=== PATIENT | female | born 2000 | race Caucasian/White ===

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

== ENCOUNTER → 2023-09-27 16:03 | Outpatient (BNVA) | payer OTHER, SELFPAY | PROVIDERS: PCP Electrodiagnostic Medicine; Visit Provider Nurse Practitioner Women's Health | DX: Z12.4 Encounter for screening for malignant neoplasm of cervix (principal) | CPT/HCPCS: 88175 ==

== ENCOUNTER 2023-12-13 10:34 | Outpatient (CLI) | payer OTHER, SELFPAY ==
--- NOTE | 2023-12-13 10:42 | XR_ITS ---
WS: [id number] KUB, AP view, 12/13/2023 Clinical Data: HISTORY OF NEPHROLITHIASIS Comparison: KUB, 02/28/2021 Findings: There are small calcifications overlying both kidneys. Both kidneys are slightly obscured by bowel ga s. No abnormal intraabdominal masses are seen. There is no dilatated small bowel or evidence of obstruc tion. XR/XR KUB [id number] Impression: Small bilateral renal calculi.
== END 2023-12-13 10:35 | disposition home or self-care (01) ==
LOC: RAD 10:38
PROVIDERS: PCP Electrodiagnostic Medicine; Visit Provider Nurse Practitioner Family
DX: N20.0 Calculus of kidney (principal); Z87.442 Personal history of urinary calculi
CPT/HCPCS: 74018